=== PATIENT | male | born 1980 | race Caucasian/White ===

== ENCOUNTER 2016-09-01 14:42 | Emergency (ER) | payer OTHER ==
[~2016-09-01] VITALS: Ht 154.9 cm; Wt 79.5 kg
[2016-09-01 15:44] LABS: HEMATOCRIT 42.8 % (38.0-50.0); MCH 32.5 PG (29.0-34.0); MCHC 36.2 G/DL (30.0-36.0); MCV 89.7 FL (86-99); MEAN PLAT.VOLUME 10.1 uM^3 (9.0-12.4); PLATELET COUNT 224 K/uL (156-360); RBC DIS.WIDTH-CV 12.3 % (11.8-14.6); RBC DIS.WIDTH-SD 39.3 % (39-53); RED BLOOD COUNT 4.77 M/uL (4.00-5.50); WHITE BLOOD COUNT 9.5 K/uL (4.1-10.2)
[2016-09-01 15:53] LABS: CHLORIDE 103 mEq/L (99-109); POTASSIUM 3.9 mEq/L (3.7-5.4); SODIUM 139 mEq/L (136-147)
[2016-09-01 15:54] LABS: GLUCOSE 97 mg/dL (70-99)
[2016-09-01 15:56] LABS: ANION GAP 12 MEQ/L (2-14)
[2016-09-01 15:59] LABS: UREA NITROGEN (BUN) 9 mg/dL (9-23)
[2016-09-01 16:00] LABS: GFR ESTIMATE (CALCULATED) > 59 mL/min/
[2016-09-01] MEDS ORDERED: FIORICET 50-301 EACH PO (19:03)
[2016-09-01 19:10] VITALS: BP 120/72
[2016-09-01] MEDS ORDERED: NO ROUTINE HOME MEDS (19:11)
== END 2016-09-01 19:12 | disposition home or self-care (01) ==
LOC: EME 14:42 → RME 14:42
DX: G43.909 Migraine, unspecified, not intractable, without status migrainosus (principal); R07.9 Chest pain, unspecified; H53.8 Other visual disturbances; F17.200 Nicotine dependence, unspecified, uncomplicated
CPT/HCPCS: 70450; 71020; 80048; 85027; 93005; 99281; 99285; J0780; J1100; J1200; J1885; J7030